=== PATIENT | female | born 1995 | race American Indian/Alaskan Native ===

== ENCOUNTER 2020-01-26 13:04 | Emergency (ER) | payer SELFPAY ==
--- NOTE | 2020-01-26 13:24 | Emergency Department Report ---
Blank Doc - Documentation Documentation: 24-year-old female that presents with abdominal pain with nausea/vomiting. This initial assessment/diagnostic orders/clinical plan/treatment(s) is/are subject to change based on patient's health status, clinical progression and re- assessment by fellow clinical providers in the ED. Further treatment and workup at subsequent clinical providers discretion. Patient/guardians urged not to elope from the ED as their condition may be serious if not clinically assessed and managed. Initial orders include: 1- Patient sent to [facility] for further evaluation and treatment 2- labs 3- UA
[2020-01-26 13:27] VITALS: BP 121/75
== END 2020-01-26 17:15 | disposition left against medical advice (07) ==
LOC: ED 13:04
DX: R11.10 Vomiting, unspecified (principal); Z53.21 Procedure and treatment not carried out due to patient leaving prior to being seen by health care provider
CPT/HCPCS: 82962